=== PATIENT | male | born 1955 | race Caucasian/White ===

== ENCOUNTER 2019-08-23 20:46 | Emergency (ER) | payer MEDICARE, SELFPAY ==
[2019-08-23 20:53] VITALS: PULSE 96; RESP 18; TEMP 36.7; O2SAT 96
[2019-08-23 22:08] VITALS: BP 134/71; PULSE 85; RESP 16; TEMP 36.8; O2SAT 98
--- NOTE | 2019-08-24 00:05 | ED.GENADUL_ITS ---
Discharge Plan Disposition Patient Disposition: HOME Condition: Stable Discharge Details Chief Complaint: Laceration Clinical Impression: Facial laceration Primary Care Provider: Lorena,Local ED Provider: Andie Mcdaniel Discharge Instructions Instructions: Head Injury (ED), Facial Laceration (ED) Additional Instructions: Wash area with soap and water once or twice daily. Apply topical antibiotic ointment to the wound 2-3 times a day. Keep covered with a Band-Aid. Return for suture removal in 5 days. Observe for any signs of infection. You received tetanus vaccine today Observe for any signs of head injury. Review information regarding head injury Return for any worsening, concerns or alarming symptoms sooner if needed Discharge Data Discharge Date/Time-TO BE ENTERED AT DEPARTURE: 08/23/19 22:13 Medical Decision Making 64-year-old patient presents after striking his head on a coffee table after mechanical trip and fall concerned with sustaining a laceration lateral to his right eye. Irregularly-shaped laceration. No eye injury reported or vision change. Patient denies any evidence or concerns of head injury. Patient has no neck or back pain. Denies any other sites of pain or concerns. Tetanus ordered as patient is unsure of his recent tetanus status. Patient has an irregularly shaped laceration with multiple flaps, stellate wound requiring internal and ext ernal sutures for adequate closure of the tissue. See procedure note for details. Patient tolerated procedure without difficulty. Wound care and management discussed. Head injury precautions discussed. Patient feels comfortable discharge home. Return precautions discussed. The patient was stable and requested discharge. Prior to discharge, my usual and customary return precautions were reviewed with the patient - this included follow-up instructions and reasons to return to the Emergency Department if conditions worsens, does not improve as expected, or other new concerns arise. HPI General Date/Time Provider Initiated Documentation: 08/23/19 20:55 . HPI Narrative: This is a 64-year-old patient presenting the emergency room for complaints of laceration to the right face. Patient reports he tripped and fell and struck his head on a coffee table which was near him. Patient denies loss of consciousness, headache, dizziness, nausea, vomiting. Denies any vision change or blurred vision. Patient presents due to laceration which is present at the right upper eyelid and face. Patient denies any blurred vision, double vision, flashes or floaters. Patient denies use of blood thinners. Patient denies any neck or back pain. No paresthesia. No chest pain, difficulty breathing or shortness of breath or wheezing. No new cough. No fevers or chills. Patient feeling well otherwise. No other concerns or complaints at this time. Tetanus unknown. Patient recently relocated here General Stated Complaint: Laceration JEANNETTE: 3 Review of Systems All systems reviewed & are unremarkable except as noted in HPI and below [facility] Social History Smoking/Tobacco Use Status: Current every day Tobacco Type: cigarettes Alcohol Intake: never Drug use: Never Substance use type: does not use Do you feel safe at home: Yes Do you feel safe in your relationship?: Yes Exam Narrative Exam Narrative: CONST: Healthy appearing patient, in no acute distress. Well hydrated. Alert and oriented. HENMT: Head nomocephalic, normal to inspection. Hearing grossly normal. Patient has a irregularly-shaped laceration to the face just lateral to the right eye not involving the canthus of the eye. Patient has irregular, somewhat stellate with multiple flaps. Some deep extension not involving the muscle tissue. No muscle weakness noted around the eye, retained ability to close eyes, raise brows. Bleeding is controlled. EYES: General normal appearance. Alignment normal. Eyelids normal. Conjunctiva normal. NECK: Normal visual inspection. FROM. Trachea midline. No Midline tenderness. CHEST: Normal insepection of the chest. RESP: Normal respiratory effort. Speaking full sentences. No cough. No audible wheezing. No retractions. CARDIO: No JVD. MUSCULOSKELETAL: Normal Gait. FROM of all extremities. SKIN: Normal. Dry. No rashes. NEURO: Alert and awake. Speech clear. PSYCH: Normal affect. Cooperative. Course Vital Signs Vital signs: Vital Signs Temperature 36.7 C 08/23/19 20:53 Pulse 96 H 08/23/19 20:53 Respiratory Rate 18 08/23/19 20:53 Pulse Oximetry 96 08/23/19 20:53 Temperature 36.8 C 08/23/19 22:08 Temperature Source Skin 08/23/19 20:53 Pulse 85 08/23/19 22:08 Respiratory Rate 16 08/23/19 22:08 Respiratory Effort Non-Labored 08/23/19 20:56 Blood Pressure 134/71 08/23/19 22:08 Pulse Oximetry 98 08/23/19 22:08 Oxygen Delivery Method Room Air 08/23/19 20:53 Oxygen Flow Rate 0 08/23/19 20:53 Pain Level 2 08/23/19 22:08 Procedures Laceration Laceration 1: Site: face Side (If applicable): right Size (cm): 3.5 Description: stellate and irregular Depth: simple, single layer Local Anesthetic: Lidocaine 1% Amount of anesthesia used (mL): 3 Pre-repair: wound explored and irrigated extensively Skin layer closed with: other (Prolene) Size (cm): 6-0 Number of sutures: 7 Subcutaneous layer closed with: other (Monocryl) Size: 6-0 Number of sutures: 2
== END 2019-08-23 22:13 | disposition home or self-care (01) ==
LOC: ER 22:15
PROVIDERS: Emergency Provider Physician Assistant
DX: S01.81XA Laceration without foreign body of other part of head, initial encounter (principal); W01.190A Fall on same level from slipping, tripping and stumbling with subsequent striking against furniture, initial encounter
CPT/HCPCS: 12013; 90471

== ENCOUNTER 2019-08-30 17:25 | Emergency (ER) | payer MEDICARE, SELFPAY ==
[2019-08-30 17:31] VITALS: BP 128/65; PULSE 89; TEMP 36.9; O2SAT 97
--- NOTE | 2019-08-30 17:40 | W.ED.GENAD ---
Discharge Plan Disposition Patient Disposition: HOME Condition: Stable Discharge Details Chief Complaint: SutureRem Clinical Impression: Visit for suture removal Primary Care Provider: Lorena,Local ED Provider: Sheyla Felder Home Meds and New Rx's Prescriptions: No Action No Known Home Meds RF: 0 Discharge Instructions Instructions: Stitches Removal (ED) Medical Decision Making Patient here for suture removal had 7 sutures noted to right external eye, no drainage no swelling no erythema surrounding. Sutures removed without difficulty wound well approximated. Does have some bruising to the posterior occiput, EOMs intact, no complaints of any problems at home. 7 sutures removed, wound well approximated, no erythema. Patient to be discharged home. HPI General Mode of arrival: ambulatory. Date/Time Provider Initiated Documentation: 08/30/19 17:31. Limitations to Documentation: no limitations. Information obtained by: patient. HPI Narrative: Patient here for suture removal had 7 sutures noted to right external eye, no drainage no swelling no erythema surrounding. Sutures removed without difficulty wound well approximated. Does have some bruising to the posterior occiput, EOMs intact, no complaints of any problems at home. Related Data Home Medications Medication Instructions Recorded Confirmed Unknown [No Known Home Meds] 08/30/19 08/30/19 Allergies Allergy/AdvReac Type Severity Reaction Status Date / Time No Known Allergies Allergy Unverified 08/30/19 17:34 General Stated Complaint: SutureRem JEANNETTE: 5 Review of Systems All systems reviewed & are unremarkable except as noted in HPI and below Integumentary/Breasts Skin/Breast: Reports as per HPI Comments: Contusions noted annabelle-occipital area, here for suture removal [facility] Social History Smoking/Tobacco Use Status: Current every day Tobacco Type: cigarettes Alcohol Intake: never Drug use: Never Substance use type: does not use Do you feel safe at home: Yes Do you feel safe in your relationship?: Yes Exam Skin Trauma: laceration (Well approximated laceration noted to the right external eye see HPI.) Course Vital Signs Vital signs: Vital Signs Temperature 36.9 C 08/30/19 17:31 Pulse 89 08/30/19 17:31 Blood Pressure 128/65 08/30/19 17:31 Pulse Oximetry 97 08/30/19 17:31 Temperature 36.9 C 08/30/19 17:31 Temperature Source Temporal Artery Scan 08/30/19 17:31 Pulse 89 08/30/19 17:31 Respiratory Effort Non-Labored 08/30/19 17:33 Blood Pressure 128/65 08/30/19 17:31 Blood Pressure Position Sitting 08/30/19 17:31 Pulse Oximetry 97 08/30/19 17:31 Oxygen Delivery Method Room Air 08/30/19 17:31 Oxygen Flow Rate 0 08/30/19 17:31
== END 2019-08-30 17:55 | disposition home or self-care (01) ==
PROVIDERS: Emergency Provider Registered Nurse Emergency
DX: S01.81XA Laceration without foreign body of other part of head, initial encounter (principal); W01.190A Fall on same level from slipping, tripping and stumbling with subsequent striking against furniture, initial encounter; Z48.02 Encounter for removal of sutures